=== PATIENT | female | born 1940 | race Caucasian/White ===

== ENCOUNTER → 2017-07-17 09:46 | Outpatient (CLI) | payer MEDICARE, SELFPAY ==
[2017-07-17 11:33] LABS: Anion Gap 6 (5-15); BUN 27 mg/dL (7-18); BUN/Creat Ratio 25.7 RATIO (10-20); Chloride 107 mmol/L (98-107); Creatinine, Serum 1.05 mg/dL (0.55-1.02); EST Glomerular Filtration Rate 54 mL/min (>60); Est Glom Filt Rate - Afr Amer 65 mL/min (>60); Glucose 80 mg/dL (74-106); Potassium 4.9 mmol/L (3.5-5.1); Sodium Level 140 mmol/L (136-145)
== END ==
PROVIDERS: Family Provider Internal Medicine; PCP Internal Medicine; Visit Provider Internal Medicine
DX: R94.4 Abnormal results of kidney function studies (principal)
CPT/HCPCS: 36415; 80048

== ENCOUNTER → 2017-09-26 08:25 | Outpatient (CLI) | payer MEDICARE, SELFPAY ==
[2017-09-26 09:59] LABS: BUN 21 mg/dL (7-18); Calcium,Total 9.3 mg/dL (8.5-10.1); Chloride 105 mmol/L (98-107); Creatinine, Serum 1.14 mg/dL (0.55-1.02); EST Glomerular Filtration Rate 49 mL/min (>60); Est Glom Filt Rate - Afr Amer 59 mL/min (>60); Potassium 4.7 mmol/L (3.5-5.1); Sodium Level 141 mmol/L (136-145)
== END ==
PROVIDERS: Family Provider Internal Medicine; PCP Internal Medicine
DX: R22.1 Localized swelling, mass and lump, neck (principal)
CPT/HCPCS: 36415; 82310; 82374; 82435; 82565; 84132; 84295; 84520

== ENCOUNTER → 2021-03-05 08:15 | Outpatient (CLI) | payer MEDICARE, SELFPAY ==
[2021-03-05 08:53] LABS: Absolute Lymphocyte Count 1.12 X10^3/uL (0.83-4.51); Absolute Neutrophil Count 4.8 X10^3/uL (2.0-7.7); Basophil# 0.01 X10^3/uL; Basophil% 0.2 % (0-1); Eosinophil# 0.07 X10^3/uL; Eosinophils% 1.1 % (0-5); Hematocrit 35.8 % (37-47); Hemoglobin 11.9 g/dL (12.0-15.0); Lymphocyte # 1.12 X10^3/ul (0.83-4.51); Mean Corp Hgb Conc 33.2 g/dL (32-36); Mean Corpuscular Hgb 29.7 pg (27.0-32.0); Mean Corpuscular Volume 89.3 fL (81-99); Mean Platelet Vol. 11.5 fl (6.2-12.0); Monocyte# 0.54 X10^3/uL; Monocyte% 8.2 % (0-10); NRBC Flagged by Analyzer 0 % (0-5); Neutrophil # 4.82 X10^3/uL (2.7-7.7); Neutrophil % 73.2 % (47-70); Platelet Count 230 K/mm3 (150-450); RBC Distribution Width CV 14.4 % (11.6-14.6); RBC Distribution Width SD 46.6 fl (35.1-43.9); Red Blood Count 4.01 M/mm3 (4.2-5.4); White Blood Count 6.6 K/mm3 (4.4-11.0)
[2021-03-05 09:14] LABS: Hemoglobin A1c 5.6 % (3.8-5.6)
[2021-03-05 09:45] LABS: ALB/GLOB Ratio 1.2 RATIO (0.9-2.4); AST(SGOT) 13 U/L (15-37); Alanine Aminotransfer ALT/SGPT 23 U/L (13-56); Albumin, Serum 3.8 g/dL (3.2-5.0); Alkaline Phosphatase 69 U/L (45-117); Anion Gap 6 (5-15); BUN 17 mg/dL (7-18); BUN/Creat Ratio 19.6 RATIO (10-20); Calcium,Total 8.8 mg/dL (8.5-10.1); Chloride 108 mmol/L (98-107); Cholesterol 192 mg/dL (200); Creatinine, Serum 0.87 mg/dL (0.55-1.02); EST Glomerular Filtration Rate 67 mL/min (>60); Est Glom Filt Rate - Afr Amer 81 mL/min (>60); Globulin 3.2 g/dL (2.2-4.2); Glucose 104 mg/dL (74-106); High Density Lipoprotein 62 mg/dL; Potassium 3.9 mmol/L (3.5-5.1); Sodium Level 142 mmol/L (136-145); Thyroid Stim Hormone (TSH) 0.75 uIU/mL (0.358-3.74); Triglycerides 114 mg/dL; Very Low Density Lipoprotein 23 mg/dL (5-40)
[2021-03-05 09:49] LABS: Vitamin D,25 Hydroxy 27.3 ng/mL
== END ==
PROVIDERS: PCP Internal Medicine; Referring Provider Internal Medicine; Visit Provider Internal Medicine
DX: Z00.00 Encounter for general adult medical examination without abnormal findings (principal); R73.03 Prediabetes; E78.2 Mixed hyperlipidemia; M89.9 Disorder of bone, unspecified
CPT/HCPCS: 36415; 80053; 80061; 82306; 83036; 84443; 85025

== ENCOUNTER 2021-04-29 08:25 | Outpatient (CLI) | payer MEDICARE, SELFPAY ==
[2021-04-29 10:14] LABS: Anion Gap 8 (5-15); BUN 27 mg/dL (7-18); BUN/Creat Ratio 25.2 RATIO (10-20); Chloride 109 mmol/L (98-107); Creatinine, Serum 1.07 mg/dL (0.55-1.02); EST Glomerular Filtration Rate 52 mL/min (>60); Est Glom Filt Rate - Afr Amer 63 mL/min (>60); Glucose 102 mg/dL (74-106); Potassium 3.8 mmol/L (3.5-5.1); Sodium Level 141 mmol/L (136-145)
== END 2021-04-29 23:59 | disposition short-term general hospital (02) ==
LOC: LAB 08:28
PROVIDERS: PCP Internal Medicine; Referring Provider Internal Medicine; Visit Provider Internal Medicine
DX: I10 Essential (primary) hypertension (principal)
CPT/HCPCS: 36415; 80048

== ENCOUNTER → 2021-12-07 | Outpatient (CLI) | payer MEDICARE, SELFPAY ==
--- NOTE | 2021-12-07 13:59 | BD_ITS ---
STUDY: DUAL ENERGY X-RAY ABSORPTIOMETRY / DXA REASON FOR EXAM: Female, 81 years old. Osteoporosis TECHNIQUE: Bone Mineral Density (BMD) measurements of lumbar spine and bilateral hips were obtained. COMPARISON: None. FINDINGS: Lumbar Spine (L1-L4): g/cm2 (1.001) / T-score (-0.4) / Z-score (2.3) Findings are suggestive of normal bone density with a low fracture risk. Left Femur Total: g/cm2 (0.851) / T-score (-0.7) / Z-score (1.4) Left Femoral Neck: g/cm2 (0.718) / T-score (-1.2) / Z-score (1.2) Right Femur Total: g/cm2 (0.874) / T-score (-0.6) / Z-score (1.6) Right Femoral Neck: g/cm2 (0.684) / T-score (-1.5) / Z-score (0.9) BD/Dexa Bone Density Study IMPRESSION: The patient is considered osteopenic as outlined below according to World [employer] Organization (WHO) criteria with a low fracture risk. Reference Information: The T-score is the number of standard deviations above or below the standard which is normal for young adults at their peak bone mineral density. The World Health Organization (WHO) interprets the T-scores as follows: Above -1 Normal bone density Between -1 and -2.5 Osteopenia Equal to / or below -2.5 Osteoporosis As a practical clinical guideline, osteopenia may be graded as follows: Mild -1 through -1.5 Moderate -1.6 through -2.0 Severe -2.1 through -2.4 The Z-score is the number of standard deviations above or below age-matched controls. A Z-score of less than -1.5 would be considered abnormal. References: 1. NIH Osteoporosis and Related Bone Diseases www osteo.org 2. International Society for Clinical Densitometry www iscd.org 3. National Osteoporosis Foundation www nof.org Electronically Signed: Ward Alston MD at 14:44 EDT ,
== END | disposition home or self-care (01) ==
LOC: OPBD 13:52
PROVIDERS: PCP Internal Medicine; Visit Provider Internal Medicine
DX: M81.0 Age-related osteoporosis without current pathological fracture (principal)
CPT/HCPCS: 77080

== ENCOUNTER → 2022-05-26 | Outpatient (CLI) | payer MEDICARE, SELFPAY ==
[2022-05-26 12:32] LABS: Vitamin D,25 Hydroxy 24.2 ng/mL
[2022-05-26 12:42] LABS: ALB/GLOB Ratio 1.4 RATIO (0.9-2.4); AST(SGOT) 15 U/L (15-37); Alanine Aminotransfer ALT/SGPT 23 U/L (13-56); Albumin, Serum 4.2 g/dL (3.2-5.0); Alkaline Phosphatase 53 U/L (45-117); Anion Gap 7 (5-15); BUN 23 mg/dL (7-18); BUN/Creat Ratio 17.7 RATIO (10-20); Calcium,Total 9.8 mg/dL (8.5-10.1); Chloride 109 mmol/L (98-107); Cholesterol 214 mg/dL (200); EST Glomerular Filtration Rate 42 mL/min (>60); Est Glom Filt Rate - Afr Amer 51 mL/min (>60); Globulin 3.1 g/dL (2.2-4.2); Glucose 106 mg/dL (74-106); High Density Lipoprotein 62 mg/dL; Potassium 4.7 mmol/L (3.5-5.1); Protein, Total 7.3 g/dL (6.4-8.2); Sodium Level 139 mmol/L (136-145); Triglycerides 145 mg/dL; Very Low Density Lipoprotein 29 mg/dL (5-40)
[2022-05-26 12:56] LABS: Absolute Neutrophil Count 5.9 X10^3/uL (2.0-7.7); Basophil# 0.03 X10^3/uL; Basophil% 0.4 % (0-1); Eosinophil# 0.08 X10^3/uL; Hematocrit 39.9 % (37-47); Hemoglobin 12.5 g/dL (12.0-15.0); Lymphocyte % 20.3 % (19-41); Mean Corp Hgb Conc 31.3 g/dL (32-36); Mean Corpuscular Hgb 29.4 pg (27.0-32.0); Mean Corpuscular Volume 93.9 fL (81-99); Mean Platelet Vol. 11.6 fl (6.2-12.0); Monocyte# 0.65 X10^3/uL; Monocyte% 7.8 % (0-10); NRBC Flagged by Analyzer 0 % (0-5); Neutrophil # 5.86 X10^3/uL (2.7-7.7); Platelet Count 289 K/mm3 (150-450); RBC Distribution Width CV 13.9 % (11.6-14.6); Red Blood Count 4.25 M/mm3 (4.2-5.4); White Blood Count 8.4 K/mm3 (4.4-11.0)
== END | disposition home or self-care (01) ==
LOC: BIMLAB 08:59
PROVIDERS: PCP Internal Medicine; Referring Provider Internal Medicine; Visit Provider Internal Medicine
DX: M85.80 Other specified disorders of bone density and structure, unspecified site (principal); I10 Essential (primary) hypertension; K21.9 Gastro-esophageal reflux disease without esophagitis
CPT/HCPCS: 36415; 80053; 80061; 82306; 85025

== ENCOUNTER → 2022-11-30 | Outpatient (CLI) | payer MEDICARE, SELFPAY ==
[2022-11-30 12:50] LABS: Anion Gap 5 (5-15); BUN 32 mg/dL (7-18); BUN/Creat Ratio 18.8 RATIO (10-20); Calcium,Total 9.1 mg/dL (8.5-10.1); Chloride 111 mmol/L (98-107); EST Glomerular Filtration Rate 31 mL/min (>60); Est Glom Filt Rate - Afr Amer 37 mL/min (>60); Glucose 89 mg/dL (74-106); Potassium 4.2 mmol/L (3.5-5.1); Sodium Level 138 mmol/L (136-145)
== END | disposition home or self-care (01) ==
LOC: BIMLAB 09:36
PROVIDERS: PCP Internal Medicine; Visit Provider Internal Medicine
DX: R51.9 Headache, unspecified (principal); I10 Essential (primary) hypertension
CPT/HCPCS: 36415; 80048

== ENCOUNTER → 2023-01-05 | Outpatient (CLI) | payer MEDICARE, SELFPAY ==
[2023-01-05 13:38] LABS: Anion Gap 7 (5-15); BUN 26 mg/dL (7-18); BUN/Creat Ratio 17.9 RATIO (10-20); Calcium,Total 9.5 mg/dL (8.5-10.1); Chloride 107 mmol/L (98-107); Creatinine, Serum 1.45 mg/dL (0.55-1.02); EST Glomerular Filtration Rate 37 mL/min (>60); Est Glom Filt Rate - Afr Amer 44 mL/min (>60); Glucose 90 mg/dL (74-106); Potassium 4.7 mmol/L (3.5-5.1); Sodium Level 140 mmol/L (136-145)
== END | disposition home or self-care (01) ==
LOC: BIMLAB 10:09
PROVIDERS: PCP Internal Medicine; Visit Provider Internal Medicine
DX: I10 Essential (primary) hypertension (principal)
CPT/HCPCS: 36415; 80048

== ENCOUNTER → 2023-05-01 | Outpatient (CLI) | payer MEDICARE, SELFPAY ==
--- NOTE | 2023-05-01 09:59 | ART_ITS ---
Reason For Study: Abnormal test through insurance Procedure A bilateral lower extremity continuous wave Doppler with analog waveform analysis and ankle brachial indexes. Left Segmental Pressures Left brachial= 160mmHg. Left posterior tibial artery = 174mmHg. Left dorsalis pedis artery = 176mmHg. The left dorsalis pedis waveforms are triphasic. The left posterior tibial artery waveforms are triphasic. Right Segmental Pressures Right brachial= 158mmHg. Right posterior tibial artery = 180mmHg. Right dorsalis pedis artery = 183mmHg. The right dorsalis pedis waveforms are triphasic. The right posterior tibial artery waveforms are triphasic. Indices The right ankle brachial index by the dorsalis pedis is 1.14. The right ankle brachial index by the posterior tibial artery is 1.13. The left ankle brachial index by the dorsalis pedis is 1.10. The left ankle brachial index by the posterior tibial artery is 1.09. VL/Ankle Brachial Index Interpretation Summary Right LISA 1.14, normal. Doppler/PVR waveforms of the right leg normal at rest. Left LISA 1.1, normal. Doppler/PVR waveforms of the left leg normal at rest. Ordering Physician: Cindy Bernard Referring Physician: Cindy Bernard Performed By: Nathalie Cartagena, JAMES, RVT
== END | disposition home or self-care (01) ==
PROVIDERS: PCP Internal Medicine; Referring Provider Internal Medicine; Visit Provider Internal Medicine
DX: I73.9 Peripheral vascular disease, unspecified (principal)
CPT/HCPCS: 93922

== ENCOUNTER → 2023-06-01 | Outpatient (CLI) | payer MEDICARE, SELFPAY ==
--- OUTSIDE RECORDS SUMMARY | 2023-06-01 12:06 | XMS RPT_ITS | CCD ---
Author Name Unknown Address [address] [place] [address] Organization [facility] Care Team Providers Care Unit Manager [employer] Name Role Phone BI RYAN (MEDICAL PHYSIOLOGIST) Unavailable Unavailable Kiya Wu Unavailable ELANA LORENZO Referring Unavailable ELANA LORENZO Admitting Unavailable Kiya Wu MD Primary Care Provider 1( [phone] Kiya Wu MD Primary Care Provider KIYA WU Primary Care Unavailable KIYA WU Primary Care Unavailable ELANA LORENZO Attending Unavailable SELF, SELF Referring Unavailable KIYA WU Primary Care Unavailable KIYA WU Referring Unavailable KIYA WU Attending Unavailable KIYA WU Primary Care Unavailable KIYA WU Primary Care Unavailable Allergies Allergy Classification Reported Allergen(s) Allergy Type Date of Onset Reaction(s) Facility (2 sources) Morphine Drug Allergy 04-24-2018 N[facility]a [facility] Vomiting [facility] ([facility] sources) NIFEdipine Drug Allergy 06-15-2020 Headache [facility] Medications Current Medications Medication Drug Class(es) Dates Sig (Normalized) Sig (Original) acetaminophen 325 mg / butalbital 50 mg / caffeine 40 mg oral tablet (6 sources) Barbiturate, Central Nervous System Stimulant, Methylxanthine Start: 08-02-2021 take 1 tablet by mouth every six hours as needed for headache and headache, then take 1 tablet by mouth every six hours as needed for headache and headache butalbital-acetam inophen-caffeine 50-325-40 MG per tablet Indications: Chronic tension-type headache, not intractable Take 1 tablet by mouth every 6 hours as needed for Headaches. take 1 tablet by mouth every 6 hours NEEDED FOR HEADACHES OR OTHER SEVERE HEADACHES 20 tablet 5 08/02/2021 Active Completed/Discontinued Medications Medication Drug Class(es) Dates Sig (Normalized) Sig (Original) simvastatin 40 mg oral tablet (1 source) HMG-CoA Reductase Inhibitor Start: 12-08-2017 End: 02-28-2018 take 1 tablet by mouth once daily in the evening simvastatin 40 MG Tab TAKE ONE TABLET BY MOUTH EVERY EVENING AT 6PM 90 tablet 3 12/08/2017 02/28/2018 Discontinued 24 hr verapamil hydrochloride 120 mg extended release oral capsule (1 source) Calcium Channel Eric Start: 12-20-2017 End: 02-28-2018 take 1 capsule by mouth once daily verapamil 120 MG Cap SR 24HR capsule ER Take 1 capsule by mouth daily. 30 capsule 0 12/20/2017 02/28/2018 Discontinued Problems Active Problems Problem Classification Problem Date Documented Da te Episodic/Chronic Abdominal pain (1 source) Female genital organ symptoms; Translations: [Pelvic and perineal pain] Episodic Anxiety disorders (5 sources) Generalized anxiety disorder; Translations: [Generalized anxiety disorder] Onset: 6 07-10-2015 Chronic Cardiac dysrhythmias (4 sources) Ventricular premature beats; Translations: [Ventricular premature depolarization] Onset: 0 01-14-2020 Chronic Complications of surgical procedures or medical care (2 sources) Prolapse of vaginal vault after hysterectomy; Translations: [Prolapse of vaginal vault after hysterectomy] Onset: 1 05-12-2020 Chronic Disorders of lipid metabolism (19 sources) Pure hypercholesterolemia; Translations: [Hyperlipidemia] Onset: 6 Resolved: 7 06-22-2016 Chronic Esophageal disorders (5 sources) Gastroesophageal reflux disease; Translations: [Gastro-esophageal reflux disease without esophagitis] Onset: 2 06-03-2013 Chronic Essential hypertension (19 sources) Benign essential hypertension; Translations: [Hypertensive disorder] Onset: 9 Resolved: 3 11-30-2012 Chronic Headache; including migraine (9 sources) Chronic tension-type headache; Translations: [Chronic tension-type headache, not intractable] Onset: 7 06-22-2016 Chronic Menopausal disorders (1 source) Atrophy of vagina; Translations: [Postmenopausal atrophic vaginitis] Chronic Osteoarthritis (10 sources) Unilateral primary osteoarthritis, right hip; Translations: [Osteoarthritis of hip] Onset: 2 Resolved: 6 07-10-2015 Chronic Other bone disease and musculoskeletal deformities (6 sources) Osteopenia; Translations: [Other specified disorders of bone density and structure, multiple sites] 06-03-2013 Episodic Other gastrointestinal disorders (5 sources) Chronic constipation; Translations: [Other constipation] 02-18-2008 Episodic Other gastrointestinal disorders (1 source) Constipation; Translations: [Constipation, unspecified] Episodic Prolapse of female genital organs (1 source) Incomplete uterovaginal prolapse; Translations: [Incomplete uterovaginal prolapse] Chronic Residual codes; unclassified (2 sources) Insomnia; Translations: [Other insomnia] Onset: 2 Chronic Residual codes; unclassified (1 source) Other insomnia; Translations: [Other insomnia] Onset: 4 Chronic Residual codes; unclassified (2 sources) Sleep disorder, unspecified; Translations: [Sleep disorder, unspecified] Onset: 2 Episodic Spondylosis; intervertebral disc disorders; other back problems (12 sources) Lumbosacral spondylosis without myelopathy; Translations: [Disorder of joint of spine] Onset: 2 Resolved: 6 07-10-2015 Chronic Thyroid disorders (2 sources) Multinodular goiter; Translations: [Nontoxic multinodular goiter] Onset: 9 01-08-2019 Chronic Unclassified (6 sources) Drug therapy finding; Translations: [Controlled substance agreement signed] Onset: 6 12-09-2015 Unclassified (3 sources) Patient encounter status; Translations: [Healthcare maintenance] Onset: 4 06-03-2013 Past or Other Problems Problem Classification Problem Date Documented Da te Episodic/Chronic Acute and unspecified renal failure (5 sources) Renal failure syndrome; Translations: [Unspecified kidney failure] Onset: 10-29-2010 Resolved: 06-03-2013 06-03-2013 Chronic Acute and unspecified renal failure (5 sources) Acute renal failure syndrome; Translations: [Acute kidney failure, unspecified] Onset: 06-10-2010 Resolved: 06-03-2013 06-03-2013 Episodic Diabetes mellitus without complication (7 sources) Hyperglycemia; Translations: [Prediabetes] Onset: 02-25-2008 Resolved: 01-21-2021 06-16-2008 Episodic Headache; including migraine (5 sources) Headache; Translations: [Headache] Resolved: 06-22-2016 06-22-2016 Episodic Mood disorders (2 sources) Mood disorders Onset: 01-27-2021 01-27-2021 Other aftercare (5 sources) Drug therapy finding; Translations: [Other extermination inspector (current) drug therapy] Onset: 04-22-2015 Episodic Other aftercare (2 sources) Other extermination inspector (current) drug therapy; Translations: [Other extermination inspector (current) drug therapy] Onset: 08-06-2021 Episodic Residual codes; unclassified (5 sources) Insomnia; Translations: [Insomnia, unspecified] Onset: 02-18-2008 06-03-2013 Episodic Residual codes; unclassified (2 sources) Patient encounter status; Translations: [Encounter for procedure for purposes other than remedying health state, unspecified] Onset: 07-15-2020 07-15-2020 Episodic Spondylosis; intervertebral disc disorders; other back problems (3 sources) Disorder of joint of spine; Translations: [Osteoarthritis of spine with radiculopathy, lumbar region] Onset: 01-18-2012 06-28-2017 Episodic Results Test Name Value Interpretation Reference Range Facil ity Vital Signs Date Time Vital Sign Value Performing Clinician Faci lity 03-07-2022 11:050 Body height 170.2 cm Elana Lorenzo MD Work Phone: [facility] 03-07-2022 11:19-050 Body mass index (BMI) [Ratio] 23.74 kg/m2 Elana Lorenzo MD Work Phone: [facility] 03-07-2022 11:19050 Body weight 68.77 kg Elana Lorenzo MD Work Phone: [facility] 03-07-2022 11:19-0500 Diastolic blood pressure 74 mm[Hg] Elana Lorenzo MD Work Phone: [facility] 03-07-2022 11:19-0500 Systolic blood pressure 122 mm[Hg] Elana Lorenzo MD Work Phone: [facility] 08-06-2021 11:01-0400 Body mass index (BMI) [Ratio] 24.43 kg/m2 Kiya Wu MD Work Phone: [facility] 08-06-2021 11:01-0400 Body weight 70.76 kg Kiya Wu MD Work Phone: [facility] 08-06-2021 11:01-0400 Diastolic blood pressure 70 mm[Hg] Kiya Wu MD Work Phone: [facility] 08-06-2021 11:01-0400 Heart rate 54 /min Kiya Wu MD Work Phone: [facility] 08-06-2021 11:01-0400 Systolic blood pressure 128 mm[Hg] Kiya Wu MD Work Phone: [facility] 02-28-2018 10:47-0500 BMI (Body Mass Index) 25.2 kg/m2 [facility] Work Phone: 02-28-2018 10:47-0500 BP Diastolic 86 mm[Hg] Kiya [facility] Work Phone: 02-28-2018 10:47-0500 BP Systolic 150 mm[Hg] [facility] Work Phone: 02-28-2018 10:47-0500 Pulse (Heart Rate) 60 /min Kiya [facility] Work Phone: 02-28-2018 10:47-0500 Pulse Oximetry 97 % Kiya Wu [facility] Work Phone: 02-28-2018 10:47-0500 Weight 72.58 kg Kiya Wu [facility] Work Phone: Encounters Encounter Date Encounter Type Care Provider Facility Start: 03-18-2022 ambulatory KIYA WU Fac ility:[facility] Start: 03-07-2022 ambulatory KIYA WU Fac ility:[facility] Start: 03-07-2022 End: 03-07-2022 Office outpatient visit 15 minutes Elana Lorenzo MD Work Phone: [facility] [place] Procedures Date Procedure Procedure Detail Performing Clinician Start: 06-28-2017 Mammography Kiya nicolemaye Start: 07-16-2008 Colonoscopy Kiya bains Plan of Treatment Date Care Activity Detail Author Start: 01-24-2024 DEXA SCAN DEXA SCAN [facility] Start: 01-24-2024 Screening for osteoporosis DEXA SCAN [facility] Start: 03-06-2023 End: 03-06-2023 Patient encounter procedure 03/06/2023 Office Visit BANKING MANAGER Elana Lorenzo MD [address] [facility] [address] [place] [address] [facility] [place] Start: 11-29-2022 Tetanus vaccination TETANUS [facility] Start: 03-18-2022 End: 03-18-2022 Patient encounter procedure 03/18/2022 Office Visit General Medicine Kiya Wu MD [address] [place] [id number] [facility] Start: 01-27-2022 PREVENTATIVE HEALTH VISIT PREVENTATIVE HEALTH VISIT [facility] Start: 06-29-2019 Mammography MAMMOGRAM [facility] Work Phone: Start: 07-16-2018 Colonoscopy COLONOSCOPY [facility] Work Phone: Start: 06-28-2018 PHYSICAL EXAM PHYSICAL EXAM [facility] Work Phone: Start: 05-21-2018 End: 05-21-2018 Ambulatory 05/21/2018 Office Visit Endocrinology, Diabetes & Metabolism Judith Lopez MD [address] [facility] [address] [place] [address] [facility] Start: 03-12-2018 Ambulatory 03/12/2018 Hospital Encounter Magnetic Resonance Imaging Sesar Gonzalez MD [address] [facility] [address] [place] [address] Department of Radiology Start: 02-19-2018 Ambulatory 02/19/2018 Procedure Pass Otolaryngology [facility] Start: 12-10-2017 DEXA SCAN DEXA SCAN [facility] Work Phone: Immunizations Immunization Date Immunization Notes Care Provider Fa cility 07-01-2021 COVID-19 vaccine, SUSANNA-SUCROSE, Pfizer, 0.3 ML Kiya Wu MD Work Phone: [facility] 12-31-2020 COVID-19 vaccine, MR NA, Pfizer, 0.3 ML Kiya Wu MD Work Phone: [facility] 12-09-2020 Influenza Vaccine, Quadrivalent, Adjuvanted Kiya Wu MD Work Phone: [facility] 05-23-2020 COVID-19 vaccine, MR NA, Pfizer, 0.3 ML Kiya Wu MD Work Phone: [facility] Work Phone: 05-02-2020 COVID-19 vaccine, MR THIEN, Meghan, 0.3 ML Kiya Wu MD Work Phone: [facility] 12-10-2019 influenza, injectabl e, quadrivalent, contains preservative Kiya Wu MD Work Phone: [facility] 12-10-2019 influenza, injectabl e, quadrivalent, preservative free Kiya Wu MD Work Phone: [facility] 12-17-2018 influenza, seasonal, injectable Kiya Wu MD Work Phone: [facility] 12-17-2018 Seasonal trivalent influenza vaccine, adjuvanted, preservative free Kiya Wu MD Work Phone: [facility] 12-18-2017 Seasonal trivalent influenza vaccine, adjuvanted, preservative free Kiya [facility] Work Phone: 10-17-2017 zoster vaccine recombinant [facility] Work Phone: 07-17-2017 zoster vaccine recombinant [facility] Work Phone: 12-21-2016 influenza, high dose seasonal, preservative-free; Translations: [INFLUENZA VACCINE, HIGH-DOSE] [facility] Work Phone: 12-09-2015 influenza, high dose seasonal, preservative-free; Translations: [INFLUENZA VACCINE, HIGH-DOSE] [facility] Work Phone: 01-06-2015 influenza, high dose seasonal, preservative-free [facility] Work Phone: 01-06-2015 influenza, seasonal, injectable Kiya Wu MD Work Phone: [facility] 06-12-2014 pneumococcal conjuga te vaccine, 13 valent [facility] Work Phone: 03-26-2014 pneumococcal polysaccharide vaccine, 23 valent [facility] 12-09-2013 influenza, high dose seasonal, preservative-free; Translations: [INFLUENZA VACCINE, HIGH-DOSE] [facility] 11-29-2012 tetanus toxoid, redu rene diphtheria toxoid, and acellular pertussis vaccine, adsorbed; Translations: [TDAP VACCINE] [facility] 01-02-2012 influenza virus vaccine, unspecified formulation [facility] Work Phone: 01-01-2011 influenza virus vaccine, unspecified formulation [facility] Work Phone: 01-01-2010 influenza virus vaccine, unspecified formulation [facility] Work Phone: 01-01-2010 zoster vaccine, live [facility] Work Phone: 01-18-2008 influenza virus vaccine, unspecified formulation [facility] Work Phone: 01-18-2008 influenza virus vaccine, whole virus Kiya Wu MD Work Phone: [facility] 04-04-2007 pneumococcal polysaccharide vaccine, 23 valent [facility] Work Phone: 06-25-2002 TD(adult) unspecifie d formulation Kiya Wu MD Work Phone: [facility] 06-25-2002 tetanus and diphther ia toxoids, adsorbed, preservative free, for adult use (2 Lf of tetanus toxoid and 2 Lf of diphtheria toxoid) Kiya Wu [facility] Payers Date Payer Category Payer Medicare MEDICARE [employer]ET[employer] [place] MEDICARE [employer]ET[employer] PPO [id number] 2021-Present [address] [place] [address] [id number] 2021 Medicare [id number] 2014 Medicare [id number] 1940 Unknown [id number] 1940 Unknown [id number] 1940 Unknown [id number] 1940 Unknown [id number] 1940 Unknown [id number] Social History Date Type Detail Facility Start: 11-03-2008 End: 02-28-2018 Tobacco smoking status NHIS Never smoker [facility] Work Phone: Start: 1940 Sex Assigned At Not on file [facility] Work Phone: Start: 11-03-2008 Tobacco use and exposure Smokeless tobacco non-user [facility] Start: 08-06-2021 End: 03-07-2022 Alcohol intake Current non-drinker of alcohol (finding) [facility] Start: 11-03-2008 Tobacco Comment 2nd-hand smoke exposure as child. [facility] Medical Equipment Procedure Code Equipment Code Equipment Origin al Text Equipment Identifier Dates Mesh 35.4cm Thk2 00um 2.8sq Mm Y [employer] Lightweight Large - [id number] Start: 07-15-2020 Goals Date Patient Goal Desired Activity /State History of Present illness Narrative 03-07-2022 Shell Zepeda MD - 03/07/2022 11:30 AM EST Note Date & Type Note Facility 03-07-2022 History of Present illness Narrative Reason for Visit: post op Interval History: She is s/p RA sacrocolpopexy, mace, and cystourethroscopy on 07/15/20. She returns for follow-up. She reports occasional pressure symptoms with walking, lifting,etc. She does not feel or see a bulge when she experiences these symptoms. She reports a life long history of constipation. She reports this is stable. She denies concern for urinary incontinence, urgency. Denies vaginal bleeding/discharge. Previous note reports that she is on vaginal estrogen cream. She reports she has never used that medication. No concerns with vaginal irritation or dryness. Previous History: Saundra Arboleda is a 81 y.o. female, presents in referral from Dr. Wu for consultation and evaluation of prolapse. Previous abdominal/pelvic surgery: JONNATHAN () for fibroids (in [place]) BSO (1989) for ovarian cysts Bladder suspension (1999) Appendectomy, open Previous urogynecologic workup: none Previous urogynecologic therapy: none Her primary complaint is vaginal prolapse. Reports that she had a bladder suspension surgery via vaginal approach in 1999 (Dr. Vance in [place], [place]). She does not think it was a mesh-based surgery. She reports a 1 year history of recurrent vaginal prolapse. Reports that she was loading some crates of water at [employer] and noticed that she had a vaginal bulge that was more significant, approx 2-3w ago. Reports that this is not bothersome to her, not painful, and that she does not need to splint to void or defecate because of this. Has not tried to push it back in. Reports that she voids q1.5-2h. Reports that she does occasionally leak with bending over or with holding her urine too long. Does not feel a sense of urgency. Reports nocturia 1x/night. Wears pantyliners, 1x/d. She is not bothered by these symptoms. Reports daily vs every other day BMs. Reports chronic constipation, will occasionally use colace. No fecal incontinence. Her PO fluid intake includes: 60 oz water/day, 0 cups of coffee/day, 0 pop, no alcohol. She is not sexually active. Obstetrical History: The patient is a . She had 1 vaginal delivery. She had no operative delivery(s) and no significant lacerations / episiotomies. Her largest baby was 8 lbs. Gynecological History: Paps: normal Mammograms: normal, last performed 2019. Menstrual: Patient's last menstrual period was 04/03/1989. Menopausal: N/A If yes, PMB: No Prior hysterectomy: Yes Sexual History: Sexually active: No Desires to be sexually active in future: Yes Dyspareunia: Yes, no longer Patient's last menstrual period was 04/03/1989. Past Medical History: Diagnosis Date Chronic constipation Chronic Headaches GERD (gastroesophageal reflux disease) Hemorrhoids HTN Dx 1996. Hyperglycemia Hyperlipidemia Dx 1999. Insomnia Migraine Osteopenia Past Surgical History: Procedure Laterality Date COLPOPEXY ABDOMINAL APPROACH ROBOTIC N/A 07/15/2020 Laterality: N/A; Surgeon: Elana Lorenzo MD; Location[facility] VESICOURETHROPEXY ANTERIOR/URETHROPEXY SIMPLE ROBOTIC N/A 07/15/2020 Laterality: N/A; Surgeon: Elana Lorenzo MD; Location[facility] CYSTOURETHROSCOPY DIAGNOSTIC N/A 07/15/2020 Laterality: N/A; Surgeon: Elana Lorenzo MD; [facility] COLONOSCOPY 07/2008 BLADDER SUSPENSION 2000 with AP repair LUMBAR DISC SURGERY 1996 L5 APPENDECTOMY 1990 HYSTERECTOMY 1989 OOPHORECTOMY Bilateral 1989 EXCISIONAL BREAST BIOPSY Left benign no path in ihis TOTAL ABDOMINAL HYSTERECTOMY Fibroids Medications: Outpatient Medications Prior to Visit Medication Sig Dispense Refill alendronate 70 MG tablet take 1 tablet by mouth every week 12 tablet 3 Gzevprx-Sjudbgsuoeiov-Wmnfjdla (EXCEDRIN EXTRA STRENGTH PO) Take 250 mg by mouth 4 times daily as needed. atenolol 25 MG tablet Take 1 tablet by mouth daily. 90 tablet 3 atorvastatin 20 MG tablet take 1 tablet by mouth once daily 90 tablet 4 imrhyejlnm-ntudokdqxomfw-lhmqsvzg 50-325-40 MG per tablet Take 1 tablet by mouth every 6 hours as needed for Headaches. take 1 tablet by mouth every 6 hours NEEDED FOR HEADACHES OR OTHER SEVERE HEADACHES 20 tablet 5 ipratropium 0.03 % Solution instill 2 sprays into each nostril twice a day 90 mL 4 Multiple Vitamin (multivitamin) capsule Take 1 capsule by mouth daily. omeprazole [address] capsule take 1 capsule by mouth once daily 90 capsule 3 valsartan-hydrochlorothiazide 80-12.5 MG tablet take 1 tablet by mouth once daily 90 tablet 4 zolpidem 5 MG tablet Take 1 tablet by mouth at bedtime as needed for Sleep. 90 tablet 1 No facility-administered medications prior to visit. Allergies: Allergies Allergen Reactions Morphine Nausea and Vomiting Nifedipine Headache Social History reports that she has never smoked. She has never used smokeless tobacco. She reports that she does not drink alcohol and does not use drugs. Family History: family history includes Colon Cancer in her brother; Colorectal Cancer in her brother; Coronary Artery Disease in her father; Depression in her father; Heart Failure in her father; Lung Cancer in her mother; Migraines in an other family member; Myocardial Infarction in her brother and father. Denies family history of breast, ovarian, uterine, colon cancer. Review of Systems Review of Systems Constitutional: Negative for chills, fatigue and fever. Eyes: Negative for pain and visual disturbance. Respiratory: Negative for cough, shortness of breath and wheezing. Cardiovascular: Negative for chest pain, palpitations and leg swelling. Gastrointestinal: Negative for abdominal distention, abdominal pain, constipation, diarrhea, nausea and vomiting. Endocrine: Negative for cold intolerance and heat intolerance. Musculoskeletal: Positive for back pain. Negative for gait problem and neck pain. Skin: Negative for rash. Neurological: Positive for headaches. Negative for dizziness, tremors, weakness, light-headedness and numbness. Psychiatric/Behavioral: Negative for confusion, sleep disturbance and suicidal ideas. The patient is not nervous/anxious. Physical Exam: BP 122/74 (BP Location: Left arm, BP Position: Sitting) Ht 5' 7 (1.702 m) Wt 151 lb 9.6 oz (68.8 kg) BMI 23.74 kg/m Smoking Status Never Body mass index is 23.74 kg/m . General: Well appearing female, appropriate in interaction. Psychiatric: Appropriate mood and affect Head: extraocular eye movements are intact. Head with normal shape, no apparent lesions, masses or foreign bodies. Respiratory: Easy work of breathing, symmetric expansion Abdomen: Soft, non-tender, and nondistended with no masses, no organomegaly. No evidence of hernias noted. Robotic incisions well healed. Genitourinary: External genitalia normal, Vagina normal without discharge, no evidence of mesh erosion. POP-Q: Preop POPQ: POINT Aa: +3 POINT Ba: +3 POINT C: -1 POINT GH: 4 POINT PB: 3 POINT TVL: 5.5 POINT Ap: -1 POINT Bp: -1 No evidence of POP on exam today Neurologic: Rectal: Eyqqf-fx-ptly urinalysis: Lab Results Component Value Date APPEARANCE Clear 02/16/2021 COLOR Yellow 02/16/2021 SPECIFICGRAV 1.005 02/16/2021 BLOOD Neg 02/16/2021 PH 5.0 02/16/2021 PROTEIN Neg 02/16/2021 UROBILINOGEN 0.2 02/16/2021 NITRITE Neg 02/16/2021 LEUKOCYTE Neg 02/16/2021 LEUKOCESTUR Small (A) 01/28/2015 Post void residual: PVR: 12 ml by bladder scan Assessment: This is a 81 y.o. female s/p RA sacrocolpopexy, mace, and cystourethroscopy Plan: 1. Post hyst prolalpse: Saundra is doing well and at this time has no evidence of recurrence or mesh erosion on exam today. 2. Urinary urgency: She has non bothersome urinary urgency, will continue to monitor. 3. Vaginal atrophy: discussed exam findings, currently not bothered so will defer vaginal estrogen at this time. 4. Constipation: We discussed the importance of management of this issue. This included proper water intake, colace, miralax daily, and adequate fiber intake of 25-30 g through diet and supplementation. Plan for 1 year follow up or sooner as needed. Shell Zepeda MD BANKING MANAGER, PGY1 === FPMRS Attending Note Attending Physician Note (ALISTAIR) I interviewed and examined this patient with the resident. I reviewed the history and exam detailed in the note. I agree with the medical decision making and have edited the note to reflect my findings, assessment, and plan as needed. Elana Lorenzo MD Division of Female Pelvic Medicine and Reconstructive Surgery documented in this encounter [facility] Instructions 08-06-2021 Patient Instructions Note Date & Type Note Facility 08-06-2021 Instructions Kiya Wu MD - 08/06/2021 11:37 AM EDT Thanks for seeing me today. Please Review Instructions Carefully: 1. New Medications or changed medications: We will reduce atenolol to 25mg daily 2. Medication Stopped: none 3. Return For Labs/Testing: None ordered 4. Lifestyle Recommendations: A. I generally recommend 30 minutes of cardiovascular exercise 4-6 times a week. It should be vigorous enough that you break a sweat. Adopting a regular strength training program to focus on strength and injury prevention is important in ensuring you have a strong core and supportive muscles to complete your exercise routine without injury. You do not need a gym. There are many useful apps and online programs that offer exercise routines at low or no cost. All you have to do is commit! B. Your diet should be rich and fruits and vegetables (taking up half of your plate) with the other half being split between lean proteins and complex carbohydrates-- Eat food. Not too much. Mostly Plants --Joo Alvarez. You cannot out exercise a poor diet. C. Sleep Hygiene is important for healthy sleep. Our brains must be taught to go to sleep: 1. Go to bed at the same time every night 2. Get up at the same time every day 3. NO caffeine after NOON 4. Exercise daily--this helps sleep immensely! 5. If worries keep you awake, keep a pad of paper and pencil next to your bed. When they start, write them down. If you are interested in counseling, please let me know. We can help with this and I find it helps EVERYONE who engages in it. 6. About one hour before bed, NO SCREEN TIME. Turn lights down low to signal your brain it is time to sleep 7. The only evidence based solution I have found to be routinely beneficial for patients with difficulty sleeping is cognitive behavioral therapy. There are many online programs you can find. 8. Consider evaluation for sleep apnea if you snore, wake frequently or your partner sees you stop breathing/choking at night. D. Consider checking out the following if you struggle with depression, anxiety, sleep or are wanting some tips to help with behavior change success consider listening to: 1. Headspace Jhoan: guided meditation/mindfulness 2. Calm: guided meditation/mindfulness 3. Podcast: [facility] with Priscila Arriaza. Evidence based suggestions for managing difficult life experiences, developing coping skills, and creating/sustaining behavior changes. 5. Other Instructions: none Please note: You will receive some test results before I have had a chance to review them. I will always send your test results with my thoughts/comments whether they are normal or abnormal. Please be patient so that I have time to thoughtfully review and comment on them. If something is urgent, I will contact you CHALO. Also, please note that [employer] is not to be used for issues that can't wait. Please call the office for these concerns. documented in this encounter [facility] History of Present illness Narrative 08-06-2021 Kiya Wu MD - 08/06/2021 11:00 AM EDT Note Date & Type Note Facility 08-06-2021 History of Present illness Narrative HPI: Ms. Arboleda is a 80 y.o. yo female. Here today for: Notes/other records reviewed today: none Chronic condition updates: Chronic headaches: She is doing really well. She takes fioricet 3 times a week and takes half a tablet at a time. It works well. She uses excedrin daily 1-2 times a day. HTN: Current Medications: valsartan 80/hctz 12.5mg daily, atenolol 50mg daily. Compliance:good Side effects: no Other barriers to treatment: no Home lo-110/50s with pulses in the 50s Goal BP: <130/80 The ASCVD Risk score (Mary VALDIVIA Jr. et al., 2013) failed to calculate for the following reasons: The 2013 ASCVD risk score is only valid for ages 40 to 79 HLD: Current medication: atorvastatin 20mg Previous meds tried: good Side effects: No The ASCVD Risk score (Mary VALDIVIA Jr., et al., 2013) failed to calculate for the following reasons: The 2013 ASCVD risk score is only valid for ages 40 to 79 Insomnia: Uses ambien as needed 3-4 times a week. Acute issues HPI: n/a Physical Exam Vitals: 08/06/21 1101 BP: 128/70 Pulse: 54 Weight: 70.8 kg (156 lb) Body mass index is 24.43 kg/m . Wt Readings from Last 3 Encounters: 02/16/21 73.3 kg (161 lb 8 oz) 01/27/21 71.8 kg (158 lb 3.2 oz) 09/14/20 71.2 kg (157 lb) Pertinent exam findings for today: General appearance: alert, well appearing, and in no distress CVS exam: normal rate, regular rhythm, normal S1, S2, no murmurs, rubs, clicks or gallops Chest: clear to auscultation, no wheezes, rales or rhonchi, symmetric air entry. Normal effort. Labs reviewed today: Lab Results Component Value Date SODIUM 139 06/15/2020 POTASSIUM 4.9 06/15/2020 CHLORIDE 107 06/15/2020 CO2 24 06/15/2020 BUN 15 06/15/2020 CREATSERUM 0.91 06/15/2020 Imaging reviewed today: none A/P: Ms. Arboleda is a 80 y.o. female who presents today for evaluation of the following. 1. Essential hypertension, benign Well controlled. She is having low readings at home. We will reduce the atenolol to 25mg daily at thsi time in the hopes of getting off of this altogether. She will update me in 2-4 weeks 2. Chronic tension-type headache, not intractable Doing well on fioricet. Will continue. 3. Other insomnia Doing well on ambien prn. Will continue. documented in this encounter [facility] Evaluation note Note Date & Type Note Facility documented in this encounter [facility] Evaluation note Note Date & Type Note Facility documented in this encounter [facility] Summary Purpose Family History No Family History Records FoundNo Family History Records FoundNo Family History Records Found Advance Directives No Advanced Directives Records FoundLatest Code Status on File Code Status Date Activated Date Inactivated Comments Full Code 07/15/2020 5:24 AM 07/15/2020 7:31 PM Latest Code Status on File Code Status Date Activated Date Inactivated Comments Full Code 07/15/2020 5:24 AM 07/15/2020 7:31 PM History of Present Illness * Kiya Wu MD - 02/28/2018 10:40 AM EST Formatting of this note may be different from the original. HPI: .Ms. Arboleda is a 77 y.o. yo female with a pmhx significant for has a past medical history of Chronic constipation; Chronic Headaches; Hemorrhoids; HTN; Hyperglycemia; Hyperlipidemia; Insomnia; and Osteopenia.. 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 No change in frequency of the headaches and it didn't help the severity either. She did find the fioricet and has used 9 of the 15 that she was given. It resolved headache. She is still having daily headaches, which she defines as normal headaches . Recent worsening of headaches has improved. She is pleased with treatment. Does not want to see neuro. HTN: Current Medications: atenolol 50mg daily. Compliance:good Side effects: no Other barriers to treatment: no Home lo/80s Goal BP: <130/80 The 10-year ASCVD risk score (Mary VALDIVIA Jr., et al., 2013) is: 36.4% Values used to calculate the score: Age: 77 years Sex: Female Is Non- : No Diabetic: No Tobacco smoker: No Systolic Blood Pressure: 158 mmHg Is BP treated: Yes HDL Cholesterol: 54 mg/dL Total Cholesterol: 170 mg/dL Osteopenia/Osteoporosis: Diagnosed with osteopenia in 2002. Has been on the following bisphosphonate therapy: alendronate 12/15 and stopped in 2015. She took it for two years. Compliance with medication is very good Side effects with meds: ? Headaches/jaw pain and ankle pain. She is also taking calcium 600 mg/day and no vitd. Dairy intake includes: cheese, milk and occasional yogurt . Exercises with walking. Most recent Dexa showed osteopenia. Family history of hip fracture: no. but mother fractured ankle. FRAX:Risk ofhip fracture 2.1%, Risk of major osteoporotic fracture 10.5% at ten years. HLD: She has a note from insurance ? Use of dose of simvastatin and urging consideration of change in therapy Current medication: simvastatin 40mg Previous meds tried: none Side effects: No The 10-year ASCVD risk score (Mary VALDIVIA Jr., et al., 2013) is: 33.4% Values used to calculate the score: Age: 77 years Sex: Female Is Non- : No Diabetic: No Tobacco smoker: No Systolic Blood Pressure: 150 mmHg Is BP treated: Yes HDL Cholesterol: 54 mg/dL Total Cholesterol: 170 mg/dL HM: Health Maintenance Date Due Completion Dates DEXA SCAN 12/10/2017 12/11/2015, 12/06/2012, 06/21/2010, 06/18/2008, 06/08/2005, 07/26/2002 PHYSICAL EXAM 06/28/2018 06/28/2017, 06/22/2016, 06/22/2016, 06/22/2016, 07/10/2015, 07/10/2015, 07/10/2015, 07/30/2014, 07/30/2014, 07/30/2014, 06/03/2013, 06/03/2013, 06/03/2013, 06/03/2013 COLONOSCOPY 07/16/2018 07/16/2008, 09/07/2004, 01/30/2003 MAMMOGRAM 06/29/2019 06/28/2017, 06/27/2016, 09/29/2014, 09/27/2013, 07/23/2012, 07/22/2011, 07/20/2010, 06/30/2009, 07/01/2008, 06/28/2007, 06/27/2006, 05/30/2005 TETANUS 11/29/2022 11/29/2012, 06/25/2002 ROS: No chest pain, no shortness of breath, no vision changes, no abdominal pain, no reflux All No Known Allergies Meds: Current Outpatient Prescriptions Medication Sig atenolol 50 MG Tab tablet TAKE ONE TABLET BY MOUTH DAILY lcpbzqrmaa-yebtwdthyckir-shwnfhej 50-325-40 MG Tab per tablet Take 1 tablet by mouth every 6 hours as needed for Headaches or Other (severe headaches). Calcium Carbonate-Vit D-Min (CALCIUM 1200 PO) take 1 Tab by mouth daily. ipratropium 0.03 % Solution 2 sprays by Nasal route 2 times daily. Multiple Vitamin (MULTI-VITAMIN PO) daily. omeprazole [address] capsule TAKE ONE CAPSULE BY MOUTH DAILY simvastatin 40 MG Tab TAKE ONE TABLET BY MOUTH EVERY EVENING AT 6PM verapamil 120 MG Cap SR 24HR capsule ER Take 1 capsule by mouth daily. zolpidem 5 MG Tab tablet Take 1 tablet by mouth at bedtime as needed for Sleep. I have reviewed the surgical, family, and social history and made changes as appropriate. Physical Exam Vitals: 02/28/18 1047 BP: 150/86 Pulse: 60 SpO2: 97% Weight: 72.6 kg (160 lb) Body mass index is 25.2 kg/m . General appearance: alert, well appearing, and in no distress CVS exam: normal rate, regular rhythm, normal S1, S2, no murmurs, rubs, clicks or gallops Chest: clear to auscultation, no wheezes, rales or rhonchi, symmetric air entry. Normal effort. Labs reviewed today: Lab Results Component Value Date SODIUM 137 09/20/2017 POTASSIUM 5.3 (H) 09/20/2017 CHLORIDE 102 09/20/2017 CO2 26 09/20/2017 BUN 22 09/20/2017 CREATSERUM 1.19 09/20/2017 Imaging reviewed today: ultrasound neck A/P: Ms. Arboleda is a 77 y.o. female who presents today for evaluation of the following. 1. Chronic daily headache: No improvement with verapamil. She does seem to respond well to fioricet, which she uses on a limited basis. We discussed referral to neurology today, but she has declined 2. HTN: uncontrolled her as usual, but home readings are well controlled and historically home cuffhas correlated to ours. No changes to medications 3. Osteopenia: Currently off of therapy. We will postpone dexa until next year as fracture risk wasfairly low and she has a lot going on with neck mass at this time. 4. HLD: Has tolerated simvastatin at 40mg well historically, but ASCVD risk is fairly high (blood pressure driven) Changing simvastatin to atorvastatin for more potent agent. 5. HM:up to date in this encounter Assessments Diagnosis Chronic tension-type headach e, not intractable - Primary Chronic tension type headache Essential hypertension, lambert gn Pure hypercholesterolemia Osteopenia of neck of left f emur Additional Source Comments INFORMATION SOURCE (unrecogn ized section and content) DATE CREATED AUTHOR AUTHOR'S ORGANIZ ATION 07/11/2020 [facility] DATE CREATED AUTHOR AUTHOR'S ORGANIZ ATION 03/25/2022 [facility] Reason for Visit (unrecogniz ed section and content) Reason Comments Follow-up Spoke with pt's Hymite. Peer to peer is set up for 03/09/18 at 2:[address] Sesar Gonzalez. They will be calling him to discuss the MRI precert. AB Reason Comments Follow-up Reason Comments Condition Update Hypertension Reason Comments Annual Exam Care Teams (unrecognized sec tion and content) Unit Manager [employer] Relationship Specialty [place] [address] [place] [id number] PCP - General 08/03/09 FOR RECORDS PERTAINING TO PATIENTS WHO ARE OR HAVE BEEN ENROLLED IN A CHEMICAL DEPENDENCY/SUBSTANCEABUSE PROGRAM, SOME INFORMATION MAY BE OMITTED. This clinical summary was aggregated from multiple sources. Caution should be exercised in using it in the provision of clinical care. This summary normalizes information from multiple sources, and as a consequence, information in this document may materially change the coding, format and clinical context of patient data. In addition, data may be omitted in some cases. CLINICAL DECISIONS SHOULD BE BASED ON THE PRIMARY CLINICAL RECORDS. [employer] [facility]. provides no warranty or guarantee of the accuracy or completeness of information in this document.
== END | disposition home or self-care (01) ==
LOC: LABSPEC 10:16
PROVIDERS: PCP Internal Medicine; Referring Provider Surgery; Visit Provider Surgery
DX: L72.3 Sebaceous cyst (principal)
CPT/HCPCS: 87070; 87075; 87077; 87186; 87205

== ENCOUNTER → 2023-06-19 | Outpatient (CLI) | payer MEDICARE, SELFPAY ==
[2023-06-19 12:08] LABS: Absolute Lymphocyte Count 1.62 X10^3/uL (0.83-4.51); Absolute Neutrophil Count 4.6 X10^3/uL (2.0-7.7); Basophil# 0.03 X10^3/uL; Basophil% 0.4 % (0-1); Eosinophils% 1.4 % (0-5); Hematocrit 39.1 % (37-47); Hemoglobin 12.7 g/dL (12.0-15.0); Lymphocyte # 1.62 X10^3/ul (0.83-4.51); Mean Corp Hgb Conc 32.5 g/dL (32-36); Mean Corpuscular Hgb 29.8 pg (27.0-32.0); Mean Corpuscular Volume 91.8 fL (81-99); Mean Platelet Vol. 11.9 fl (6.2-12.0); Monocyte# 0.63 X10^3/uL; Monocyte% 8.9 % (0-10); NRBC Flagged by Analyzer 0 % (0-5); Neutrophil # 4.63 X10^3/uL (2.7-7.7); Neutrophil % 65.9 % (47-70); Platelet Count 246 K/mm3 (150-450); RBC Distribution Width CV 14.3 % (11.6-14.6); RBC Distribution Width SD 48.1 fl (35.1-43.9); Red Blood Count 4.26 M/mm3 (4.2-5.4)
[2023-06-19 12:50] LABS: Vitamin D,25 Hydroxy 31.9 ng/mL
[2023-06-19 13:07] LABS: ALB/GLOB Ratio 1.2 RATIO (0.9-2.4); AST(SGOT) 21 U/L (15-37); Alanine Aminotransfer ALT/SGPT 26 U/L (13-56); Albumin, Serum 4.1 g/dL (3.2-5.0); Alkaline Phosphatase 68 U/L (45-117); Anion Gap 6 (5-15); BUN 37 mg/dL (7-18); BUN/Creat Ratio 26.1 RATIO (10-20); Calcium,Total 9.5 mg/dL (8.5-10.1); Chloride 111 mmol/L (98-107); Cholesterol 215 mg/dL (200); Creatinine, Serum 1.42 mg/dL (0.55-1.02); EST Glomerular Filtration Rate 38 mL/min (>60); Est Glom Filt Rate - Afr Amer 46 mL/min (>60); Globulin 3.4 g/dL (2.2-4.2); Glucose 115 mg/dL (74-106); High Density Lipoprotein 60 mg/dL; Potassium 4.7 mmol/L (3.5-5.1); Protein, Total 7.5 g/dL (6.4-8.2); Sodium Level 139 mmol/L (136-145); Triglycerides 132 mg/dL; Very Low Density Lipoprotein 26 mg/dL (5-40)
== END | disposition home or self-care (01) ==
LOC: BIMLAB 10:29
PROVIDERS: PCP Internal Medicine; Referring Provider Internal Medicine; Visit Provider Internal Medicine
DX: I10 Essential (primary) hypertension (principal); E55.9 Vitamin D deficiency, unspecified; K21.9 Gastro-esophageal reflux disease without esophagitis
CPT/HCPCS: 36415; 80053; 80061; 82306; 85025

== ENCOUNTER → 2023-12-19 | Outpatient (CLI) | payer MEDICARE, SELFPAY ==
[2023-12-19 12:39] LABS: Vitamin D,25 Hydroxy 30.1 ng/mL
[2023-12-19 12:45] LABS: ALB/GLOB Ratio 1.1 RATIO (0.9-2.4); AST(SGOT) 15 U/L (15-37); Alanine Aminotransfer ALT/SGPT 21 U/L (13-56); Albumin, Serum 3.9 g/dL (3.2-5.0); Alkaline Phosphatase 70 U/L (45-117); Anion Gap 6 (5-15); BUN 28 mg/dL (7-18); BUN/Creat Ratio 21.1 RATIO (10-20); Calcium,Total 10.1 mg/dL (8.5-10.1); Chloride 107 mmol/L (98-107); Cholesterol 209 mg/dL (200); Creatinine, Serum 1.33 mg/dL (0.55-1.02); EST Glomerular Filtration Rate 41 mL/min (>60); Est Glom Filt Rate - Afr Amer 49 mL/min (>60); Globulin 3.4 g/dL (2.2-4.2); Glucose 109 mg/dL (74-106); High Density Lipoprotein 65 mg/dL; Potassium 4.8 mmol/L (3.5-5.1); Protein, Total 7.3 g/dL (6.4-8.2); Sodium Level 137 mmol/L (136-145); Triglycerides 133 mg/dL; Very Low Density Lipoprotein 27 mg/dL (5-40)
[2023-12-19 14:38] LABS: Hemoglobin A1c 5.7 % (3.8-5.6)
== END | disposition home or self-care (01) ==
LOC: BIMLAB 11:01
PROVIDERS: PCP Internal Medicine; Visit Provider Nurse Practitioner
DX: I10 Essential (primary) hypertension (principal); R73.09 Other abnormal glucose; E55.9 Vitamin D deficiency, unspecified; E78.2 Mixed hyperlipidemia
CPT/HCPCS: 36415; 80053; 80061; 82306; 83036

== ENCOUNTER → 2024-01-11 | Outpatient (CLI) | payer MEDICARE, SELFPAY ==
--- NOTE | 2024-01-11 09:53 | BD_ITS ---
STUDY: DUAL ENERGY X-RAY ABSORPTIOMETRY / DXA REASON FOR EXAM: Female, 83 years old. Osteoporosis screening TECHNIQUE: Bone Mineral Density (BMD) measurements of lumbar spine and bilateral hips were obtained. COMPARISON: Comparison is made with prior study December 07, 2021. FINDINGS: Lumbar Spine (L1-L4): g/cm2 (1.045) / T-score (0.0) / Z-score (2.8) Findings are suggestive of normal bone density with a low fracture risk. Left Femur Total: g/cm2 (0.842) / T-score (-0.8) / Z-score (1.4) Left Femoral Neck: g/cm2 (0.694) / T-score (-1.4) / Z-score (1.1) Right Femur Total: g/cm2 (0.885) / T-score (-0.5) / Z-score (1.8) Right Femoral Neck: g/cm2 (0.729) / T-score (-1.1) / Z-score (1.4) The T-Scores on the most recent prior examination were: Lumbar Spine (L1-L4): There has been improvement of bone density since the previous examination. Left Femur Total: which represents a worsening of 1.1%. Right Femur Total: which represents an improvement of 1.3%. BD/Dexa Bone Density Study IMPRESSION: The patient is considered osteopenic as outlined below according to World Santy Organization (WHO) criteria with a low fracture risk. There has been improvement of bone density since the previous examination. Reference Information: The T-score is the number of standard deviations above or below the standard which is normal for young adults at their peak bone mineral density. The World Health Organization (WHO) interprets the T-scores as follows: Above -1 Normal bone density Between -1 and -2.5 Osteopenia Equal to / or below -2.5 Osteoporosis As a practical clinical guideline, osteopenia may be graded as follows: Mild -1 through -1.5 Moderate -1.6 through -2.0 Severe -2.1 through -2.4 The Z-score is the number of standard deviations above or below age-matched controls. A Z-score of less than -1.5 would be considered abnormal. References: 1. NIH Osteoporosis and Related Bone Diseases www osteo.org 2. International Society for Clinical Densitometry www iscd.org 3. National Osteoporosis Foundation www nof.org Electronically Signed: Ward Alston MD at 10:40 EDT ,
== END | disposition home or self-care (01) ==
LOC: OPBD 09:39
PROVIDERS: PCP Internal Medicine; Referring Provider Nurse Practitioner; Visit Provider Nurse Practitioner
DX: Z78.0 Asymptomatic menopausal state (principal)
CPT/HCPCS: 77080